=== PATIENT | female | born 1935 | race Caucasian/White ===

== ENCOUNTER → 2016-10-10 | Outpatient (CLI) | payer MEDICARE, OTHER ==
[~2016-10-10] MED LIST: BACT800T5 PO; BENEPOW8 PO; CALC1TAB42 PO; CHOL5000 PO; CIPR-9 PO; HYDR-3288 PO; LISI-519 PO; METO25TA6 PO; METR-1 PO; POTA-243 PO; PROT40TA PO; TYLE325T PO; XARE20TA PO
[2016-10-10 11:32] LABS: AUTOMATED NEUTROPHIL # 6.4 TH/MM3 (1.8-7.7); BASOPHIL # 0.1 TH/MM3 (0-0.2); BASOPHIL % 0.8 % (0.0-2.0); EOSINOPHIL # 0.2 TH/MM3 (0-0.4); EOSINOPHIL % 1.7 % (0.0-4.0); HEMATOCRIT 36.9 % (35.0-46.0); HEMO FLAGS DIFF FINAL; LYMPH % 23.8 % (9.0-44.0); LYMPHOCYTE # 2.2 TH/MM3 (1.0-4.8); MEAN CELL VOLUME 90.8 FL (80.0-100.0); MEAN CORPUSCULAR HEMOGLOBIN 30.7 PG (27.0-34.0); MEAN CORPUSCULAR HGB CONC 33.8 % (32.0-36.0); MONO % 4.4 % (0.0-8.0); NEUT % 69.3 % (16.0-70.0); PLATELET COUNT 303 TH/MM3 (150-450); RED BLOOD COUNT 4.06 MIL/MM3 (4.00-5.30); RED CELL DISTRIBUTION WIDTH 13.6 % (11.6-17.2); WHITE BLOOD COUNT 9.3 TH/MM3 (4.0-11.0)
[2016-10-10 13:36] LABS: ALKALINE PHOSPHATASE 147 U/L (45-117); ALT (GPT) 21 U/L (10-53); ANION GAP 6 MEQ/L (5-15); AST (GOT) 16 U/L (15-37); BICARBONATE 30.6 MEQ/L (21.0-32.0); BLOOD UREA NITROGEN 17 MG/DL (7-18); CHLORIDE 104 MEQ/L (98-107); GLOMERULAR FILTRATION RATE 54 ML/MIN (>89); GLUCOSE,FASTING 91 MG/DL (74-99); POTASSIUM 3.9 MEQ/L (3.5-5.1); SODIUM (NA) 141 MEQ/L (136-145); TOTAL BILIRUBIN ADULT 0.3 MG/DL (0.2-1.0)
[2016-10-10 21:32] LABS: HEMOGLOBIN A1b 1.8 %; HEMOGLOBIN Ao 85.6 %; HEMOGLOBIN LA1C 1.8 %; HEMOGLOBIN P3 3.8 %
== END ==
LOC: CLAB 10:26
DX: I12.9 Hypertensive chronic kidney disease with stage 1 through stage 4 chronic kidney disease, or unspecified chronic kidney disease (principal); N18.3 Chronic kidney disease, stage 3 (moderate); R73.01 Impaired fasting glucose
CPT/HCPCS: 36415; 80053; 83036; 84100; 85025

== ENCOUNTER 2016-12-28 09:25 | Emergency (ER) | payer MEDICARE, OTHER ==
[~2016-12-28 09:25] MED LIST changes: -BACT800T5 PO; -POTA-243 PO
[2016-12-28 09:26] VITALS: BP 126/62; PULSE 84; RESP 24; TEMP 97.7; O2SAT 97
[2016-12-28] MEDS ORDERED: POTA-243 PO (10:11)
--- NOTE | 2016-12-28 10:37 | PD ---
HPI Chief Complaint: Complaint Time Seen by Provider: 09:57 Travel History International Travel<30 days: No Contact w/Intl Traveler<30days: No Traveled to known affect area: No History of Present Illness HPI The patient is a 81-year-old female who presents emergency department with a family member for possible hematuria. The patient has a history of dementia, has been incontinent of urine for approximately 3 years. The patient does have a history of mild kidney disease and previous UTI, was treated with Diflucan 2 weeks ago according to the family member. The family member states the patient had a small amount of dark urine with possible blood this morning on her diaper. There was no visible rectal bleeding according to the family member. The patient does have dementia and is a poor historian. The patient denies any chest pain, short of breath, nausea, vomiting, abdominal pain, or dysuria. The family member states that she called the patient's grades 1 thru [address] teacher, Dr. Naik, who referred her to the emergency department for a catheter UA evaluation. The patient has no previous history of nephrolithiasis. PFSH Past Medical History Hx Anticoagulant Therapy: Yes (XARELTO ) Alzheimer's Disease: Yes Blood Disorders: No Heart Rhythm Problems: No Cancer: No Cardiovascular Problems: Yes (PACEMAKER) High Cholesterol: Yes Chest Pain: No Congestive Heart Failure: No Dementia: Yes Diabetes: No Diminished Hearing: No Deep Vein Thrombosis: Yes (L THIGH ) Endocrine: Yes Gastrointestinal Disorders: No Genitourinary: Yes (FREQUENT UTI) Hypertension: Yes Immune Disorder: No Implanted Vascular Access Dvce: Yes Musculoskeletal: No Neurologic: No Psychiatric: No Reproductive: No Respiratory: No Immunizations Current: Yes Thyroid Disease: Yes (REFUSED TREATMENT ) Tetanus Vaccination: Never Vaccinated Menopausal: Yes Past Surgical History Body Medical Devices: PACEMAKER Cardiac Surgery: Yes (PACEMAKER PLACED) Gynecologic Surgery: Yes Hysterectomy: Yes Pacemaker: No Other Surgery: Yes (L SHOULDER; PACEMAKER) Social History Alcohol Use: No Tobacco Use: No Substance Use: No Allergies-Medications (Allergen,Severity, Reaction): Coded Allergies: No Known Allergies (Unverified , 05/30/16) Reported Meds & Prescriptions Reported Meds & Active Scripts Active Metoprolol Succinate ER 24 HR (Metoprolol Succinate) 25 Mg Tab 25 Mg PO DAILY 30 Days Reported Klor-Con 10 (Potassium Chloride) 10 Meq Tab 10 Meq PO DAILY Xarelto (Rivaroxaban) 20 Mg Tab 20 Mg PO DAILY Lisinopril 5 Mg Tab 5 Mg PO DAILY Review of Systems ROS Limitations: Poor Historian Except as stated in HPI: all other systems reviewed are Neg General / Constitutional: No: Fever Cardiovascular: No: Chest Pain or Discomfort Respiratory: No: Shortness of Breath Gastrointestinal: No: Nausea, Vomiting, Abdominal Pain Genitourinary: Positive: Hematuria (possible hematuria according to family member), No: Dysuria, Decreased Urinary Output Musculoskeletal: No: Weakness Neurologic: Positive: Change in Mentation (history of dementia) Physical Exam Narrative GENERAL: Awake, alert, pleasant 81-year-old female who appears her stated age and is in no acute respiratory distress. SKIN: Focused skin assessment warm/dry. HEAD: Atraumatic. Normocephalic. EYES: No injection or drainage. ENT: No nasal bleeding or discharge. Mucous membranes pink and moist. NECK: Trachea midline. No JVD. CARDIOVASCULAR: Regular rate and rhythm. No murmur appreciated. RESPIRATORY: No accessory muscle use. Clear to auscultation. Breath sounds equal bilaterally. GASTROINTESTINAL: Abdomen soft, non-tender, nondistended. No suprapubic tenderness. Rectal: The exam was performed in the presence of a female nurse. No gross blood. Guaiac negative. MUSCULOSKELETAL: No obvious deformities. No clubbing. No cyanosis. No edema. NEUROLOGICAL: Awake and alert. No obvious cranial nerve deficits. Motor grossly within normal limits. Normal speech. Alert and oriented 1 out of 3. PSYCHIATRIC: Appropriate mood and affect; insight and judgment normal. Data Data Last Documented VS Vital Signs Date Time Temp Pulse Resp B/P Pulse Ox O2 Delivery O2 Flow Rate FiO2 12/28/16 09:26 97.7 84 24 126/62 97 Room Air Orders Complete Blood Count With Diff (12/28/16 10:06) Basic Metabolic Panel (Bmp) (12/28/16 10:06) Urinalysis - C+S If Indicated (12/28/16 10:06) Act Partial Throm Time (Ptt) (12/28/16 10:06) Prothrombin Time / Inr (Pt) (12/28/16 10:06) Urine Culture (12/28/16 10:10) Labs Laboratory Tests Test 12/28/16 12/28/16 10:10 11:28 Urine Color YELLOW Urine Turbidity CLOUDY Urine pH 6.5 Urine Specific Concrete 1.020 Urine Protein TRACE mg/dL Urine Glucose (UA) NEG mg/dL Urine Ketones NEG mg/dL Urine Occult Blood MOD Urine Nitrite NEG Urine Bilirubin NEG Urine Urobilinogen LESS THAN 2.0 MG/DL Urine Leukocyte Esterase LARGE Urine RBC 15 /hpf Urine WBC 45 /hpf Urine WBC Clumps OCC Urine Amorphous Sediment RARE Urine Bacteria RARE /hpf Urine Mucus FEW /lpf Microscopic Urinalysis Comment CATH-CULTURE IND White Blood Count 11.0 TH/MM3 Red Blood Count 4.46 MIL/MM3 Hemoglobin 13.6 GM/DL Hematocrit 40.7 % Mean Corpuscular Volume 91.2 FL Mean Corpuscular Hemoglobin 30.4 PG Mean Corpuscular Hemoglobin 33.4 % Concent Red Cell Distribution Width 14.3 % Platelet Count 236 TH/MM3 Mean Platelet Volume 7.5 FL Neutrophils (%) (Auto) 72.5 % Lymphocytes (%) (Auto) 17.6 % Monocytes (%) (Auto) 7.7 % Eosinophils (%) (Auto) 1.5 % Basophils (%) (Auto) 0.7 % Neutrophils # (Auto) 8.0 TH/MM3 Lymphocytes # (Auto) 1.9 TH/MM3 Monocytes # (Auto) 0.8 TH/MM3 Eosinophils # (Auto) 0.2 TH/MM3 Basophils # (Auto) 0.1 TH/MM3 CBC Comment DIFF FINAL Differential Comment Prothrombin Time 10.2 SEC Prothromb Time International 0.9 RATIO Ratio Activated Partial 23.3 SEC Thromboplast Time Sodium Level 143 MEQ/L Potassium Level 3.5 MEQ/L Chloride Level 107 MEQ/L Carbon Dioxide Level 29.7 MEQ/L Anion Gap 6 MEQ/L Blood Urea Nitrogen 19 MG/DL Creatinine 1.02 MG/DL Estimat Glomerular Filtration 52 ML/MIN Rate Random Glucose 111 MG/DL Calcium Level 10.8 MG/DL [facility] Medical Decision Making Medical Screen Exam Complete: Yes Emergency Medical Condition: Yes Medical Record Reviewed: Yes Interpretation(s) Laboratory Tests Test 12/28/16 12/28/16 10:10 11:28 Urine Color YELLOW Urine Turbidity CLOUDY Urine pH 6.5 Urine Specific Concrete 1.020 Urine Protein TRACE mg/dL Urine Glucose (UA) NEG mg/dL Urine Ketones NEG mg/dL Urine Occult Blood MOD Urine Nitrite NEG Urine Bilirubin NEG Urine Urobilinogen LESS THAN 2.0 MG/DL Urine Leukocyte Esterase LARGE Urine RBC 15 /hpf Urine WBC 45 /hpf Urine WBC Clumps OCC Urine Amorphous Sediment RARE Urine Bacteria RARE /hpf Urine Mucus FEW /lpf Microscopic Urinalysis Comment CATH-CULTURE IND White Blood Count 11.0 TH/MM3 Red Blood Count 4.46 MIL/MM3 Hemoglobin 13.6 GM/DL Hematocrit 40.7 % Mean Corpuscular Volume 91.2 FL Mean Corpuscular Hemoglobin 30.4 PG Mean Corpuscular Hemoglobin 33.4 % Concent Red Cell Distribution Width 14.3 % Platelet Count 236 TH/MM3 Mean Platelet Volume 7.5 FL Neutrophils (%) (Auto) 72.5 % Lymphocytes (%) (Auto) 17.6 % Monocytes (%) (Auto) 7.7 % Eosinophils (%) (Auto) 1.5 % Basophils (%) (Auto) 0.7 % Neutrophils # (Auto) 8.0 TH/MM3 Lymphocytes # (Auto) 1.9 TH/MM3 Monocytes # (Auto) 0.8 TH/MM3 Eosinophils # (Auto) 0.2 TH/MM3 Basophils # (Auto) 0.1 TH/MM3 CBC Comment DIFF FINAL Differential Comment Prothrombin Time 10.2 SEC Prothromb Time International 0.9 RATIO Ratio Activated Partial 23.3 SEC Thromboplast Time Sodium Level 143 MEQ/L Potassium Level 3.5 MEQ/L Chloride Level 107 MEQ/L Carbon Dioxide Level 29.7 MEQ/L Anion Gap 6 MEQ/L Blood Urea Nitrogen 19 MG/DL Creatinine 1.02 MG/DL Estimat Glomerular Filtration 52 ML/MIN Rate Random Glucose 111 MG/DL Calcium Level 10.8 MG/DL Differential Diagnosis Differential diagnosis includes UTI, hemorrhagic cystitis, nephrolithiasis, GI bleed, anemia, chronic renal failure. Narrative Course Labs are drawn and sent. The patient's white count was normal. Creatinine is 1.02 with a GFR of 50. UA is positive for UTI with WBCs and RBCs. The patient will be placed on Bactrim. The patient is stable for outpatient follow-up. The family will be provided a copy of labs at discharge. Diagnosis Primary Impression: UTI (urinary tract infection) Qualified Code: N39.0 - Urinary tract infection with hematuria, site unspecified Patient Instructions: General Instructions Additional Instructions: Medications as directed. Please provide the family a copy of labs at discharge. Follow-up with your primary physician. Return if symptoms worsen or progress. Med/Other Pt SpecificInfo: Prescription(s) given Scripts Sulfamethoxazole-Trimethoprim (Bactrim DS)800-160 Mg Tab1 Tab PO BID #14 TAB Ref 0 Prov:Sebastien Kearns MD 12/28/16 Disposition: 01 DISCHARGE HOME Condition: Stable Sebastien Kaerns MD Dec 28, 2016 10:37
[2016-12-28 11:28] LABS: BACTERIA, URINE RARE /hpf; BLOOD, URINE MOD (NEG); COMMENT (UR) CATH-CULTURE IND; CULTURE IF INDICATED CATH CULTURE IND; GLUCOSE,URINE NEG (NEG); KETONE, URINE NEG (NEG); MUCUS URINE FEW /lpf (OCC); NITRITE,URINE NEG (NEG); PH, URINE 6.5 (5.0-8.5); URINE COLOR YELLOW (YELLW/STRAW)
[2016-12-28 11:43] LABS: BASOPHIL # 0.1 TH/MM3 (0-0.2); BASOPHIL % 0.7 % (0.0-2.0); EOSINOPHIL # 0.2 TH/MM3 (0-0.4); EOSINOPHIL % 1.5 % (0.0-4.0); HEMATOCRIT 40.7 % (35.0-46.0); HEMO FLAGS DIFF FINAL; LYMPH % 17.6 % (9.0-44.0); LYMPHOCYTE # 1.9 TH/MM3 (1.0-4.8); MEAN CELL VOLUME 91.2 FL (80.0-100.0); MEAN CORPUSCULAR HEMOGLOBIN 30.4 PG (27.0-34.0); MEAN CORPUSCULAR HGB CONC 33.4 % (32.0-36.0); MONO % 7.7 % (0.0-8.0); NEUT % 72.5 % (16.0-70.0); PLATELET COUNT 236 TH/MM3 (150-450); RED BLOOD COUNT 4.46 MIL/MM3 (4.00-5.30); RED CELL DISTRIBUTION WIDTH 14.3 % (11.6-17.2)
[2016-12-28 11:52] LABS: APTT (PATIENT) 23.3 SEC (24.3-30.1); INTERNATIONAL NORMALIZED RATIO 0.9 RATIO; PROTHROMBIN TIME - PATIENT 10.2 SEC (9.8-11.6)
[2016-12-28 12:09] LABS: BICARBONATE 29.7 MEQ/L (21.0-32.0); POTASSIUM 3.5 MEQ/L (3.5-5.1)
[2016-12-28] MEDS ORDERED: SULFAMETHOXAZOLE-TRIMETHOPRIM DS 800-160 MG TAB PO ONE (12:15)
[2016-12-28] MEDS ORDERED: BACT800T5 PO (12:15)
== END 2016-12-28 13:00 | disposition home or self-care (01) ==
LOC: NEPC 09:25
DX: N39.0 Urinary tract infection, site not specified (principal); B96.4 Proteus (mirabilis) (morganii) as the cause of diseases classified elsewhere; R31.9 Hematuria, unspecified
CPT/HCPCS: 80048; 81001; 85025; 85610; 85730; 87077; 87086; 87186; 99283

== ENCOUNTER → 2017-04-05 | Outpatient (CLI) | payer MEDICARE, OTHER ==
[~2017-04-05] MED LIST changes: +BACT800T5 PO; -BENEPOW8 PO; -CALC1TAB42 PO; -CHOL5000 PO; -CIPR-9 PO; -HYDR-3288 PO; -METR-1 PO; +POTA-243 PO; -PROT40TA PO; -TYLE325T PO
[2017-04-05 09:15] LABS: BASOPHIL # 0.1 TH/MM3 (0-0.2); EOSINOPHIL # 0.2 TH/MM3 (0-0.4); HEMATOCRIT 37.3 % (35.0-46.0); HEMO FLAGS DIFF FINAL; LYMPH % 25.2 % (9.0-44.0); LYMPHOCYTE # 2.2 TH/MM3 (1.0-4.8); NEUT % 67.8 % (16.0-70.0); PLATELET COUNT 247 TH/MM3 (150-450); RED BLOOD COUNT 3.97 MIL/MM3 (4.00-5.30); RED CELL DISTRIBUTION WIDTH 13.5 % (11.6-17.2); WHITE BLOOD COUNT 8.9 TH/MM3 (4.0-11.0)
[2017-04-05 09:23] LABS: APTT (PATIENT) 27.7 SEC (24.3-30.1); PROTHROMBIN TIME - PATIENT 11.1 SEC (9.8-11.6)
[2017-04-05 09:44] LABS: ANION GAP 7 MEQ/L (5-15); AST (GOT) 15 U/L (15-37); BICARBONATE 28.8 MEQ/L (21.0-32.0); BLOOD UREA NITROGEN 18 MG/DL (7-18); CHLORIDE 103 MEQ/L (98-107); GLOMERULAR FILTRATION RATE 60 ML/MIN (>89); GLUCOSE,FASTING 86 MG/DL (74-99); POTASSIUM 3.4 MEQ/L (3.5-5.1); SODIUM (NA) 139 MEQ/L (136-145)
[2017-04-05 10:39] LABS: ALKALINE PHOSPHATASE 99 U/L (45-117); HDL CHOLESTEROL 44.3 MG/DL (40.0-60.0); LDL CHOLESTEROL 189 MG/DL (0-99); TOTAL BILIRUBIN ADULT 0.5 MG/DL (0.2-1.0)
[2017-04-05 10:59] LABS: ALT (GPT) 17 U/L (10-53)
== END ==
LOC: CLAB 08:31
PROVIDERS: ATTEND Nurse Practitioner Family
DX: E78.5 Hyperlipidemia, unspecified (principal); I12.9 Hypertensive chronic kidney disease with stage 1 through stage 4 chronic kidney disease, or unspecified chronic kidney disease; N18.3 Chronic kidney disease, stage 3 (moderate); I82.402 Acute embolism and thrombosis of unspecified deep veins of left lower extremity; Z13.21 Encounter for screening for nutritional disorder; Z79.01 Long term (current) use of anticoagulants
CPT/HCPCS: 36415; 80053; 80061; 82306; 85025; 85610; 85730

== ENCOUNTER → 2017-04-08 | Outpatient (CLI) | payer MEDICARE, OTHER ==
--- NOTE | 2017-04-08 11:26 | RADRPT ---
EXAM DATE/TIME: 04/08/2017 10:19 [facility] COMPARISON: No previous studies available for comparison. INDICATIONS : Deep vein thrombosis left leg. MEDICAL HISTORY : Alzheimer's. hypertension. SURGICAL HISTORY : Pacemaker.Hysterectomy. Shoulder surgery. ENCOUNTER: Initial ACUITY: >1 year PAIN SCORE: 0/10 LOCATION: Bilateral leg. TECHNIQUE: Venous ultrasound of the left and right leg was performed from the inguinal ligament to the proximal calf. Real-time, color Doppler and spectral tracing, compression and augmentation techniques were us ed. FINDINGS: RIGHT LEG: There is normal compressibility of the deep venous system from the inguinal region to the proximal ca lf. No echogenic clot is seen in the lumen of the common femoral, femoral, popliteal, and posterior tibial veins. There is a normal response of the venous system to proximal and distal augmentation an d respiration. LEFT LEG: There is normal compressibility of the deep venous system from the inguinal region to the proximal ca lf. No echogenic clot is seen in the lumen of the common femoral, femoral, popliteal, and posterior tibial veins. There is a normal response of the venous system to proximal and distal augmentation an d respiration. CONCLUSION: No evidence of DVT. Mars Wheatley MD on April 08, 2017 at 11:23 Board Certified Radiologist. This report was verified electronically.
== END ==
LOC: HRAD 10:03
PROVIDERS: ATTEND Internal Medicine Cardiovascular Disease
DX: I82.409 Acute embolism and thrombosis of unspecified deep veins of unspecified lower extremity (principal)
CPT/HCPCS: 93970

== ENCOUNTER → 2017-10-14 | Outpatient (CLI) | payer MEDICARE, OTHER ==
[~2017-10-14] MED LIST changes: +CEFU1TAB20 PO; +HYDR-3516 PO; +KLOR10TA PO; +METO1TAB42 PO; -METO25TA6 PO; -POTA-243 PO; +WHEEMIS3
[2017-10-14 11:30] LABS: BASOPHIL # 0.1 TH/MM3 (0-0.2); BASOPHIL % 1.3 % (0.0-2.0); EOSINOPHIL # 0.2 TH/MM3 (0-0.4); HEMATOCRIT 37.8 % (35.0-46.0); HEMOGLOBIN 13.1 GM/DL (11.6-15.3); LYMPH % 28.7 % (9.0-44.0); LYMPHOCYTE # 2.7 TH/MM3 (1.0-4.8); MEAN CELL VOLUME 94.1 FL (80.0-100.0); MEAN CORPUSCULAR HEMOGLOBIN 32.7 PG (27.0-34.0); MEAN CORPUSCULAR HGB CONC 34.8 % (32.0-36.0); MEAN PLATELET VOLUME 7.4 FL (7.0-11.0); MONO % 4.4 % (0.0-8.0); MONOCYTE # 0.4 TH/MM3 (0-0.9); NEUT % 63.6 % (16.0-70.0); PLATELET COUNT 241 TH/MM3 (150-450); RED BLOOD COUNT 4.01 MIL/MM3 (4.00-5.30); RED CELL DISTRIBUTION WIDTH 13.4 % (11.6-17.2); WHITE BLOOD COUNT 9.4 TH/MM3 (4.0-11.0)
[2017-10-14 11:53] LABS: ALT (GPT) 18 U/L (10-53); CHOLESTEROL 274 MG/DL (120-200); TRIGLYCERIDES 175 MG/DL (42-150)
[2017-10-14 11:56] LABS: ALKALINE PHOSPHATASE 97 U/L (45-117); CHOLESTEROL/ HDL RATIO 5.91 RATIO; HDL CHOLESTEROL 46.3 MG/DL (40.0-60.0); LDL CHOLESTEROL 193 MG/DL (0-99); TOTAL BILIRUBIN ADULT 0.6 MG/DL (0.2-1.0)
[2017-10-14 11:57] LABS: ALBUMIN 2.7 GM/DL (3.4-5.0); AST (GOT) 36 U/L (15-37); BICARBONATE 29.8 MEQ/L (21.0-32.0); BLOOD UREA NITROGEN 17 MG/DL (7-18); CALCIUM 10.4 MG/DL (8.5-10.1); CHLORIDE 106 MEQ/L (98-107); CREATININE 0.98 MG/DL (0.50-1.00); GLOMERULAR FILTRATION RATE 55 ML/MIN (>89); GLUCOSE,FASTING 83 MG/DL (74-99); SODIUM (NA) 142 MEQ/L (136-145)
== END ==
LOC: CLAB 10:58
PROVIDERS: ATTEND Nurse Practitioner Family
DX: I10 Essential (primary) hypertension (principal); N18.3 Chronic kidney disease, stage 3 (moderate); E78.5 Hyperlipidemia, unspecified; E55.9 Vitamin D deficiency, unspecified; Z00.00 Encounter for general adult medical examination without abnormal findings
CPT/HCPCS: 36415; 80053; 80061; 82306; 85025

== ENCOUNTER 2017-10-17 11:53 | Inpatient (IN) | payer MEDICARE, OTHER ==
[~2017-10-17] VITALS: Ht 147.3 cm; Wt 75.0 kg
[~2017-10-17 11:53] MED LIST changes: -CEFU1TAB20 PO; -HYDR-3516 PO; -WHEEMIS3
[2017-10-17 12:00] VITALS: BP 162/109; PULSE 66; RESP 18; TEMP 97.8; O2SAT 100
[2017-10-17 12:09] VITALS: O2SAT 100
[2017-10-17] MEDS ORDERED: SODIUM CHLORIDE 0.9% FLUSH 10 ML FLUSH IVF PRN (12:15)
[2017-10-17 13:29] LABS: HEMATOCRIT 37.6 % (35.0-46.0); HEMOGLOBIN 13.2 GM/DL (11.6-15.3); MEAN CELL VOLUME 93.4 FL (80.0-100.0); MEAN CORPUSCULAR HEMOGLOBIN 32.8 PG (27.0-34.0); MEAN CORPUSCULAR HGB CONC 35.1 % (32.0-36.0); PLATELET COUNT 350 TH/MM3 (150-450); RED BLOOD COUNT 4.03 MIL/MM3 (4.00-5.30); RED CELL DISTRIBUTION WIDTH 13.9 % (11.6-17.2); WHITE BLOOD COUNT 17.5 TH/MM3 (4.0-11.0)
[2017-10-17 13:38] LABS: BACTERIA, URINE MANY /hpf; BILIRUBIN, URINE NEG (NEG); BLOOD, URINE SMALL (NEG); GLUCOSE,URINE NEG (NEG); KETONE, URINE NEG (NEG); MUCUS URINE MANY /lpf (OCC); NITRITE,URINE POS (NEG); SQUAMOUS EPITHELIAL CELL URINE 2 /hpf (0-5); URINE COLOR YELLOW (YELLW/STRAW); URINE LEUKOCYTE ESTERASE LARGE (NEG); WHITE BLOOD CELL CLUMPS MANY
--- NOTE | 2017-10-17 13:41 | PD ---
HPI Chief Complaint: Fall Time Seen by Provider: 11:58 Travel History International Travel<30 days: No Contact w/Intl Traveler<30days: No Traveled to known affect area: No History of Present Illness HPI 82-year-old female arrives by EMS due to fall. Daughter reports the patient was placed in bed in the rales at home were put up. She has a history of dementia. She was then found on the floor and the means by which she got to the floor is unclear. An abrasion over the nose was observed by EMS and daughter in a thinks she may have scraped her nose on a bedside table. History from the patient is limited due to dementia. PFSH Past Medical History Hx Anticoagulant Therapy: Yes (XARELTO ) Alzheimer's Disease: Yes Blood Disorders: No Heart Rhythm Problems: No Cancer: No Cardiovascular Problems: Yes (PACEMAKER) High Cholesterol: Yes Chest Pain: No Congestive Heart Failure: No Dementia: Yes Diabetes: No Diminished Hearing: No Deep Vein Thrombosis: Yes (L THIGH ) Endocrine: Yes Gastrointestinal Disorders: No Genitourinary: Yes (FREQUENT UTI) Hypertension: Yes Immune Disorder: No Implanted Vascular Access Dvce: Yes Musculoskeletal: No Neurologic: No Psychiatric: No Reproductive: No Respiratory: No Immunizations Current: Yes Thyroid Disease: Yes (REFUSED TREATMENT ) ?: Not Menopausal: Yes Past Surgical History Body Medical Devices: PACEMAKER Cardiac Surgery: Yes (PACEMAKER PLACED) Gynecologic Surgery: Yes Hysterectomy: Yes Pacemaker: No Other Surgery: Yes (L SHOULDER; PACEMAKER) Social History Alcohol Use: No Tobacco Use: No Substance Use: No Allergies-Medications (Allergen,Severity, Reaction): Coded Allergies: No Known Allergies (Verified Allergy, Unknown, 10/17/17) Reported Meds & Prescriptions Reported Meds & Active Scripts Active Metoprolol Succinate ER 24 HR (Metoprolol Succinate) 25 Mg Tab 25 Mg PO DAILY 30 Days Reported Xarelto (Rivaroxaban) 20 Mg Tab 20 Mg PO DAILY Lisinopril 5 Mg Tab 5 Mg PO DAILY Review of Systems Except as stated in HPI: all other systems reviewed are Neg General / Constitutional: No: Fever Physical Exam Narrative GENERAL: 82-year-old female mild to moderate distress secondary to pain and/or anxiety SKIN: Warm and dry. HEAD: Atraumatic. Normocephalic. EYES: Pupils equal and round. No scleral icterus. No injection or drainage. ENT: No nasal bleeding or discharge. Mucous membranes pink and moist. NECK: Trachea midline. No JVD. CARDIOVASCULAR: Regular rate and rhythm. RESPIRATORY: No accessory muscle use. Clear to auscultation. Breath sounds equal bilaterally. GASTROINTESTINAL: Abdomen soft, non-tender, nondistended. Hepatic and splenic margins not palpable. MUSCULOSKELETAL: Extremities without clubbing, cyanosis, or edema. No obvious deformities. NEUROLOGICAL: No focal cranial nerve deficit. Moving all extremities normally. Recent memory is impaired. PSYCHIATRIC: Unable to assess in detail. Data Data Last Documented VS Vital Signs Date Time Temp Pulse Resp B/P (MAP) Pulse Ox O2 Delivery O2 Flow Rate FiO2 10/17/17 12:09 100 Room Air 10/17/17 12:00 97.8 66 18 162/109 (126) Vital signs reviewed Orders Orders Electrocardiogram (10/17/17 12:05) Complete Blood Count With Diff (10/17/17 12:05) Comprehensive Metabolic Panel (10/17/17 12:05) Magnesium (Mg) (10/17/17 12:05) Act Partial Throm Time (Ptt) (10/17/17 12:05) Prothrombin Time / Inr (Pt) (10/17/17 12:05) Urinalysis - C+S If Indicated (10/17/17 12:05) Chest, Single Ap (10/17/17 12:05) Ct Brain W/O Iv Contrast(Rout) (10/17/17 12:05) Blood Glucose (10/17/17 12:05) Ecg Monitoring (10/17/17 12:05) Iv Access Insert/Monitor (10/17/17 12:05) Oximetry (10/17/17 12:05) Sodium Chloride 0.9% Flush (Ns Flush) (10/17/17 12:15) Hip, Uni(Ap&Lat) W Ap Pelvis (10/17/17 12:05) Knee, Complete (4vws) (10/17/17 12:05) Troponin I (10/17/17 12:36) Urine Culture (10/17/17 12:10) Ceftriaxone Inj (Rocephin Inj) (10/17/17 14:00) ^ Knee Immobilizer (10/17/17 14:25) Admit Order (Ed Use Only) (10/17/17 ) Vital Signs (Adult) Q4H (10/17/17 14:56) Activity Bed Rest (10/17/17 14:56) Notify Dr: Other (10/17/17 14:56) Lisinopril (Prinivil) (10/18/17 09:00) Metoprolol Succinate Er (Toprol Xl) (10/18/17 09:00) Labs Laboratory Tests Test 10/17/17 12:10 10/17/17 12:45 Urine Color YELLOW Urine Turbidity CLOUDY Urine pH 6.0 Urine Specific Rembrandt 1.021 Urine Protein 30 mg/dL Urine Glucose (UA) NEG mg/dL Urine Ketones NEG mg/dL Urine Occult Blood SMALL Urine Nitrite POS Urine Bilirubin NEG Urine Urobilinogen LESS THAN 2.0 MG/DL Urine Leukocyte Esterase LARGE Urine RBC 21 /hpf Urine WBC /hpf Urine WBC Clumps MANY Urine Squamous Epithelial Cells 2 /hpf Urine Bacteria MANY /hpf Urine Mucus MANY /lpf Microscopic Urinalysis Comment CULTURE INDICATED White Blood Count 17.5 TH/MM3 Red Blood Count 4.03 MIL/MM3 Hemoglobin 13.2 GM/DL Hematocrit 37.6 % Mean Corpuscular Volume 93.4 FL Mean Corpuscular Hemoglobin 32.8 PG Mean Corpuscular Hemoglobin Concent 35.1 % Red Cell Distribution Width 13.9 % Platelet Count 350 TH/MM3 Mean Platelet Volume 9.0 FL CBC Comment AUTO DIFF Differential Total Cells Counted 100 Neutrophils % (Manual) 84 % Band Neutrophils % 2 % Lymphocytes % 11 % Monocytes % 2 % Neutrophils # (Manual) 15.2 TH/MM3 Myelocytes 1 % Differential Comment FINAL DIFF MANUAL Platelet Estimate NORMAL Platelet Morphology Comment NORMAL Red Cell Morphology Comment NORMAL Prothrombin Time 10.1 SEC Prothromb Time International Ratio 1.0 RATIO Activated Partial Thromboplast Time 21.3 SEC Blood Urea Nitrogen 16 MG/DL Creatinine 0.94 MG/DL Random Glucose 127 MG/DL Total Protein 7.0 GM/DL Albumin 2.9 GM/DL Calcium Level 9.8 MG/DL Magnesium Level 1.9 MG/DL Alkaline Phosphatase 102 U/L Aspartate Amino Transf (AST/SGOT) 22 U/L Alanine Aminotransferase (ALT/SGPT) 19 U/L Total Bilirubin 0.4 MG/DL Sodium Level 140 MEQ/L Potassium Level 3.1 MEQ/L Chloride Level 107 MEQ/L Carbon Dioxide Level 23.4 MEQ/L Anion Gap 10 MEQ/L Estimat Glomerular Filtration Rate 57 ML/MIN Troponin I LESS THAN 0.02 NG/ML MDM Medical Decision Making Medical Screen Exam Complete: Yes Emergency Medical Condition: Yes Medical Record Reviewed: Yes Differential Diagnosis Metabolic disarray, renal failure, UTI, intracranial hemorrhage Narrative Course CBC & BMP Diagram 10/17/17 12:45 Total Protein 7.0, Albumin 2.9 L, Calcium Level 9.8, Magnesium Level 1.9, Alkaline Phosphatase 102, Aspartate Amino Transf (AST/SGOT) 22, Alanine Aminotransferase (ALT/SGPT) 19, Total Bilirubin 0.4 The patient is nonambulatory. She requires wheelchair assistance for mobilization. The case discussed with orthopedics who advised to consult Dr. Shaffer. This was placed. There is a distal femur fracture seen on x-ray. Right hip hardware is intact with acceptable alignment. Case discussed with Dr Gillespie. Diagnosis Primary Impression: Dementia Qualified Codes: F03.91 - Unspecified dementia with behavioral disturbance Additional Impressions: UTI (urinary tract infection) Qualified Codes: N30.01 - Acute cystitis with hematuria Closed right hip fracture Qualified Codes: S72.001S - Fracture of unspecified part of neck of right femur, sequela Fracture, femur, distal Qualified Codes: S72.401A - Unspecified fracture of lower end of right femur, initial encounter for closed fracture Admitting Information Admitting Physician Requests: Keith Tam MD Oct 17, 2017 13:41
[2017-10-17 13:44] LABS: PROTHROMBIN TIME - PATIENT 10.1 SEC (9.8-11.6)
[2017-10-17 13:46] LABS: ALBUMIN 2.9 GM/DL (3.4-5.0); ALT (GPT) 19 U/L (10-53); AST (GOT) 22 U/L (15-37); BICARBONATE 23.4 MEQ/L (21.0-32.0); BLOOD UREA NITROGEN 16 MG/DL (7-18); CALCIUM 9.8 MG/DL (8.5-10.1); CHLORIDE 107 MEQ/L (98-107); CREATININE 0.94 MG/DL (0.50-1.00); GLOMERULAR FILTRATION RATE 57 ML/MIN (>89); GLUCOSE,RANDOM 127 MG/DL (74-106); MAGNESIUM 1.9 MG/DL (1.5-2.5); SODIUM (NA) 140 MEQ/L (136-145)
[2017-10-17 13:48] LABS: ALKALINE PHOSPHATASE 102 U/L (45-117); TOTAL BILIRUBIN ADULT 0.4 MG/DL (0.2-1.0)
--- NOTE | 2017-10-17 13:49 | RADRPT ---
EXAM DATE/TIME: 10/17/2017 12:56 [facility] COMPARISON: No previous studies available for comparison. INDICATIONS : Fall, facial abrasions. RADIATION DOSE: 56.35 CTDIvol (mGy) MEDICAL HISTORY : Alzheimer's Cardiovascular disease Hypertension. SURGICAL HISTORY : None. ENCOUNTER: Initial ACUITY: 1 day PAIN SCALE: 0/10 LOCATION: cranial TECHNIQUE: Multiple contiguous axial images were obtained of the head. Using automated exposure control and adj ustment of the mA and/or kV according to patient size, radiation dose was kept as low as reasonably a chievable to obtain optimal diagnostic quality images. DICOM format image data is available electro nically for review and comparison. FINDINGS: CEREBRUM: Moderate to severe generalized volume loss is noted. There is significant enlargement of the lateral ventricles. Extensive periventricular hypodensity is identified throughout posterior hemispheres. No evidence of midline shift, mass lesion, hemorrhage or acute infarction. No extra-axial fluid collect ions are seen. POSTERIOR FOSSA: The cerebellum and brainstem are intact. The 4th ventricle is midline. The cerebellopontine angle i s unremarkable. EXTRACRANIAL: The visualized portion of the orbits is intact. SKULL: The calvaria is intact. No evidence of skull fracture. CONCLUSION: 1. Advanced central atrophy with ventriculomegaly and severe chronic microvascular ischemic white mat ter changes. 2. No acute infarct, hemorrhage, mass or edema. Mars Wheatley MD on October 17, 2017 at 13:45 Board Certified Radiologist. This report was verified electronically.
[2017-10-17] MEDS ORDERED: cefTRIAXone INJ 1,000 MG in SODIUM CHLORIDE 0.9% INJ 100 ML IV ONE (14:00)
--- NOTE | 2017-10-17 14:05 | RADRPT ---
EXAM DATE/TIME: 10/17/2017 13:18 [facility] COMPARISON: No previous studies available for comparison. INDICATIONS : Right knee pain, fall. MEDICAL HISTORY : None. SURGICAL HISTORY : None. ENCOUNTER: Initial ACUITY: 1 day PAIN SCORE: 9/10 LOCATION: Right knee FINDINGS: There is a slightly compacted fracture of the distal femur. Osseous structures are diffusely osteopen ic. Remaining osseous structures are intact. Small probable lipohemarthrosis of the suprapatellar reg ion. Soft tissues are otherwise unremarkable. CONCLUSION: 1. Distal femoral fracture. Kennedy Juan MD on October 17, 2017 at 14:01 Board Certified Radiologist. This report was verified electronically.
--- NOTE | 2017-10-17 14:22 | RADRPT ---
EXAM DATE/TIME: 10/17/2017 13:14 [facility] COMPARISON: HIP RIGHT (AP&LAT 2/3VWS) W AP PELVIS, August 16, 2016, 9:05. INDICATIONS : Right hip pain, fall. MEDICAL HISTORY : None. SURGICAL HISTORY : Pacemaker. Hysterectomy. Right total hip replacement, Shoulder replacement. ENCOUNTER: Initial ACUITY: 1 day PAIN SCORE: 10/10 LOCATION: Right proximal hip FINDINGS: Post surgical changes are identified in the right hip following ORIF with a trochanteric nail. Positi on of the fixation device as well as alignment of the fracture fragments has remained stable. The bon y pelvis is intact. There is no evidence of acute fracture. CONCLUSION: 1. Stable right hip status post prior ORIF of a femoral neck fracture with a trochanteric nail. 2. Intact pelvis and left hip. 3. No evidence of acute fracture or dislocation. Mars Wheatley MD on October 17, 2017 at 14:18 Board Certified Radiologist. This report was verified electronically.
--- NOTE | 2017-10-17 14:29 | RADRPT ---
EXAM DATE/TIME: 10/17/2017 13:28 [facility] COMPARISON: CHEST SINGLE AP, August 15, 2016, 16:48. INDICATIONS : Shortness of breath. MEDICAL HISTORY : None. SURGICAL HISTORY : Pacemaker. Hysterectomy. Left shoulder replacement. ENCOUNTER: Initial ACUITY: 1 day PAIN SCORE: 0/10 LOCATION: Bilateral chest FINDINGS: Hyperinflated. There is no evidence of acute air space disease or significant congestion. Heart and mediastinal structures are stable. Dual-chamber pacemaker is noted. CONCLUSION: 1. COPD. 2. No evidence of acute airspace disease or significant congestion. 3. Pacemaker. Mars Wheatley MD on October 17, 2017 at 14:27 Board Certified Radiologist. This report was verified electronically.
[2017-10-17 14:33] LABS: BANDS 2 % (0-6); LYMPHOCYTES 11 % (9-44); MONOCYTES 2 % (0-8); MYELOCYTES 1 % (0-0); NEUTROPHIL # MANUAL DIFF 15.2 TH/MM3 (1.8-7.7); POLYS (SEG NEUTROPHILS) 84 % (16-70)
[2017-10-17] MEDS ORDERED: ACETAMINOPHEN 325 MG TAB PO PRN (15:00)
[2017-10-17] MEDS ORDERED: SODIUM CHLORIDE 0.9% FLUSH 10 ML FLUSH IV FLUSH PRN (15:00)
[2017-10-17] MEDS ORDERED: ONDANSETRON HCL 4 MG/2 ML VIAL IVP PRN (15:00)
[2017-10-17] MEDS ORDERED: MAGNESIUM HYDROXIDE SUSP 30 ML CUP PO PRN (15:00)
[2017-10-17] MEDS ORDERED: BISACODYL 10 MG SUPP RECTAL PRN (15:00)
[2017-10-17] MEDS ORDERED: NALOXONE HCL 0.4 MG/ML AMP IV PUSH PRN ×2 (15:00→15:45)
[2017-10-17] MEDS ORDERED: SENNOSIDES 8.6 MG TAB PO PRN (15:00)
[2017-10-17] MEDS ORDERED: LACTULOSE SYRUP 20 GM/30 ML CUP PO PRN (15:00)
[2017-10-17] MEDS ORDERED: MORPHINE SULFATE 4 MG/ML INJ IV PUSH ONE (15:30)
[2017-10-17] MEDS ORDERED: MORPHINE SULFATE 2 MG/ML INJ IV PUSH PRN (15:45)
[2017-10-17 16:00] VITALS: BP 154/74; PULSE 72; RESP 18; O2SAT 100
--- NOTE | 2017-10-17 18:17 | HHI.HP ---
[facility] Service [facility] Primary Care Physician ALEJANDRA Oviedo Admission Diagnosis Distal Femur Fracture; Fall; UTI Diagnoses: Chief Complaint: Fall, right femur fracture Travel History International Travel<30 Days: No Contact w/Intl Traveler <30 Da: No Traveled to Known Affected Are: No History of Present Illness 82-year-old female with a medical history significant for Alzheimer's dementia, hypertension, history of DVT presents to the hospital after a fall. Patient has severe dementia and is unable to contribute to the history. Her daughter reports that she is bed and wheelchair bound. Her daughter reports that she left on the bed and the rails were up, about 5 minutes later she went back in the room and found on the floor. She sustained an abrasion over her nose and appeared to be in discomfort. Workup in the emergency room revealed a right distal femoral fracture. Urinalysis concerning for UTI. Review of Systems ROS Limitations: Clinical Condition, Poor Historian Unable to obtain accurate review of systems given the patient's severe dementia. There has been no recent issues from conversation with her daughter. Past Family Social History Past Medical History Alzheimer's dementia History of left lower extremity DVT Hypertension Past Surgical History Hysterectomy Right hip surgery Left shoulder surgery Pacemaker placement Reported Medications Reported Meds & Active Scripts Active Metoprolol Succinate ER 24 HR (Metoprolol Succinate) 25 Mg Tab 25 Mg PO DAILY 30 Days Reported Xarelto (Rivaroxaban) 20 Mg Tab 20 Mg PO DAILY Lisinopril 5 Mg Tab 5 Mg PO DAILY Allergies: Coded Allergies: No Known Allergies (Verified Allergy, Unknown, 10/17/17) Family History Reviewed and noncontributory. Social History Patient believes that home with her daughter. She is sedentary and confined to either the bed or wheelchair. Physical Exam Vital Signs Vital Signs Date Time Temp Pulse Resp B/P (MAP) Pulse Ox O2 Delivery O2 Flow Rate FiO2 10/17/17 17:44 10/17/17 16:00 72 18 154/74 (100) 100 Room Air 10/17/17 12:09 100 Room Air 10/17/17 12:00 97.8 66 18 162/109 (126) 100 Physical Exam GENERAL: Obese female, appears uncomfortable. Can say some words but sentences not put together. SKIN: Abrasions over the nose HEAD: Atraumatic. Normocephalic. No apparent temporal or scalp tenderness. EYES: Pupils equal round and reactive. Extraocular motions intact. No scleral icterus. No injection or drainage. ENT: Nose without drainage. Uvula midline. Airway patent. NECK: Trachea midline. No JVD or lymphadenopathy. CARDIOVASCULAR: Regular rate and rhythm without murmurs, gallops, or rubs. RESPIRATORY: Clear to auscultation. Breath sounds equal bilaterally. No wheezes , rales, or rhonchi. GASTROINTESTINAL: Abdomen soft, obese, non-tender, nondistended. MUSCULOSKELETAL: Difficult exam due to the patient's mentation. She appears uncomfortable but I am not able to elicit specific point tenderness. NEUROLOGICAL: Awake and alert. Demented. Can say some words to her daughter but cannot hold a conversation. Laboratory Laboratory Tests Test 10/17/17 12:10 10/17/17 12:45 Urine Color YELLOW Urine Turbidity CLOUDY Urine pH 6.0 Urine Specific [place] 1.021 Urine Protein 30 Urine Glucose (UA) NEG Urine Ketones NEG Urine Occult Blood SMALL Urine Nitrite POS Urine Bilirubin NEG Urine Urobilinogen LESS THAN 2.0 Urine Leukocyte Esterase LARGE Urine RBC 21 Urine WBC Urine WBC Clumps MANY Urine Squamous Epithelial Cells 2 Urine Bacteria MANY Urine Mucus MANY Microscopic Urinalysis Comment CULTURE INDICATED White Blood Count 17.5 Red Blood Count 4.03 Hemoglobin 13.2 Hematocrit 37.6 Mean Corpuscular Volume 93.4 Mean Corpuscular Hemoglobin 32.8 Mean Corpuscular Hemoglobin Concent 35.1 Red Cell Distribution Width 13.9 Platelet Count 350 Mean Platelet Volume 9.0 CBC Comment AUTO DIFF Differential Total Cells Counted 100 Neutrophils % (Manual) 84 Band Neutrophils % 2 Lymphocytes % 11 Monocytes % 2 Neutrophils # (Manual) 15.2 Myelocytes 1 Differential Comment FINAL DIFF MANUAL Platelet Estimate NORMAL Platelet Morphology Comment NORMAL Red Cell Morphology Comment NORMAL Prothrombin Time 10.1 Prothromb Time International Ratio 1.0 Activated Partial Thromboplast Time 21.3 Blood Urea Nitrogen 16 Creatinine 0.94 Random Glucose 127 Total Protein 7.0 Albumin 2.9 Calcium Level 9.8 Magnesium Level 1.9 Alkaline Phosphatase 102 Aspartate Amino Transf (AST/SGOT) 22 Alanine Aminotransferase (ALT/SGPT) 19 Total Bilirubin 0.4 Sodium Level 140 Potassium Level 3.1 Chloride Level 107 Carbon Dioxide Level 23.4 Anion Gap 10 Estimat Glomerular Filtration Rate 57 Troponin I LESS THAN 0.02 Date/Time Source Procedure Growth Status 10/17/17 12:10 Urine Random Urine Urine Culture Pending Received Result Diagram: 10/17/17 1245 10/17/17 1245 Imaging Last Impressions Knee X-Ray 10/17/17 1205 Signed Impressions: Service Date/Time: October 13:18 - CONCLUSION: 1. Distal femoral fracture. Kennedy Juan MD Head CT 10/17/17 1205 Signed Impressions: Service Date/Time: October 12:56 - CONCLUSION: 1. Advanced central atrophy with ventriculomegaly and severe chronic microvascular ischemic white matter changes. 2. No acute infarct, hemorrhage, mass or edema. Mars Wheatley MD Chest X-Ray 10/17/17 1205 Signed Impressions: Service Date/Time: October 13:28 - CONCLUSION: 1. COPD. 2. No evidence of acute airspace disease or significant congestion. 3. Pacemaker. Mars Wheatley MD Capari VTE Risk Assessment Caprini VTE Risk Assessment: Mod/High Risk (score >= 2) VTE Pharm Contraindication: Documented VTE [facility] Contraindication: LE injury/wound Caprini Risk Assessment Model Point Value = 1 Point Value = 2 Point Value = 3 Point Value = 5 Age 41-60 Minor surgery BMI > 25 kg/m2 Swollen legs Varicose veins or History of unexplained or recurrent spontaneous Oral contraceptives or hormone replacement Sepsis (< 1 month) Serious lung disease, including pneumonia (< 1 month) Abnormal pulmonary function Acute myocardial infarction Congestive heart failure (< 1 month) History of inflammatory bowel disease Medical patient at bed rest Age 61-74 Arthroscopic surgery Major open surgery (> 45 min) Laparoscopic surgery (> 45 min) Malignancy Confined to bed (> 72 hours) Immobilizing plaster cast Central venous access Age >= 75 History of VTE Family history of VTE Factor V Leiden Prothrombin [id number] Lupus anticoagulant Anticardiolipin antibodies Elevated serum homocysteine Heparin-induced thrombocytopenia Other congenital or acquired thrombophilia Stroke (< 1 month) Elective arthroplasty Hip, pelvis, or leg fracture Acute spinal cord injury (< 1 month) Prophylaxis Regimen Total Risk Factor Score Risk Level Prophylaxis Regimen 0-1 Low Early ambulation 2 Moderate Order ONE of the following: *Sequential Compression Device (SCD) *Heparin 5000 units SQ BID 3-4 Higher Order ONE of the following medications: *Heparin 5000 units SQ TID *Enoxaparin/Lovenox 40 mg SQ daily (WT < 150 kg, CrCl > 30 mL/min) *Enoxaparin/Lovenox 30 mg SQ daily (WT < 150 kg, CrCl > 10-29 mL/min) *Enoxaparin/Lovenox 30 mg SQ BID (WT < 150 kg, CrCl > 30 mL/min) AND/OR *Sequential Compression Device (SCD) 5 or more Highest Order ONE of the following medications: *Heparin 5000 units SQ TID (Preferred with Epidurals) *Enoxaparin/Lovenox 40 mg SQ daily (WT < 150 kg, CrCl > 30 mL/min) *Enoxaparin/Lovenox 30 mg SQ daily (WT < 150 kg, CrCl > 10-29 mL/min) *Enoxaparin/Lovenox 30 mg SQ BID (WT < 150 kg, CrCl > 30 mL/min) AND *Sequential Compression Device (SCD) Assessment and Plan Problem List: (1) Fracture, femur, distal ICD Code: S72.409A - Unspecified fracture of lower end of unspecified femur, initial encounter for closed fracture Status: Acute Plan: Orthopedic consulted for assistance. Hold Xalrelto until patient is seen by Ortho. Pain control. (2) Dementia ICD Code: F03.90 - Unspecified dementia without behavioral disturbance Status: Chronic Plan: Stable but I am concerned that she may become more agitated later tonight. Add Seroquel as needed for agitation. She does have a history of behavioral disturbances. (3) UTI (urinary tract infection) ICD Code: N39.0 - Urinary tract infection, site not specified Status: Acute Plan: Continue Rocephin Follow urine culture (4) Hypertension ICD Code: I10 - Essential (primary) hypertension Status: Chronic Plan: Controlled. 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 Hold Xarelto for now until patient is evaluated by orthopedics. Plan to resume if no procedures planned or after surgery when cleared by Ortho. (6) Fall ICD Code: W19.XXXA - Unspecified fall, initial encounter Plan: Unclear how she fell. Head CT with no acute findings. Patient is bedbound/wheelchair bound at baseline. Discussed Condition With Dr. Kearns Physician Certification 2 Midnight Certification Type: Admission for Inpatient Services Order for Inpatient Services The services are ordered in accordance with Medicare regulations or non- Medicare payer requirements, as applicable. In the case of services not specified as inpatient-only, they are appropriately provided as inpatient services in accordance with the 2-midnight benchmark. Estimated LOS (days): 3 days is the estimated time the patient will need to remain in the hospital, assuming treatment plan goals are met and no additional complications. Post-Hospital Plan: Not yet determined Problem Qualifiers (1) Fracture, femur, distal: Qualified Codes: S72.401A - Unspecified fracture of lower end of right femur, initial encounter for closed fracture (2) Dementia: (3) UTI (urinary tract infection): Qualified Codes: N30.01 - Acute cystitis with hematuria Bright Gillespie MD Oct 17, 2017 18:17
[2017-10-17] MEDS: ACETAMINOPHEN/HYDROcodone 325 MG/5 MG TAB PO PRN (18:27)
[2017-10-17] MEDS: D5-1/2 NS + KCL 20 MEQ INJ 1,000 ML IV SCH (18:28)
[2017-10-17 20:00] VITALS: BP 193/79; PULSE 65; RESP 18; TEMP 98.5; O2SAT 98
[2017-10-17] MEDS: SODIUM CHLORIDE 0.9% FLUSH 10 ML FLUSH IV FLUSH SCH (20:42)
[2017-10-17 23:15] VITALS: BP 130/74; PULSE 64; RESP 17; TEMP 97.6; O2SAT 98
[2017-10-18] MEDS: D5-1/2 NS + KCL 20 MEQ INJ 1,000 ML IV SCH ×2 (00:58→04:44)
[2017-10-18] MEDS: ACETAMINOPHEN/HYDROcodone 325 MG/5 MG TAB PO PRN ×3 (03:05→15:44)
[2017-10-18] MEDS ORDERED: METOPROLOL TARTRATE 25 MG TAB PO PRN (05:15)
[2017-10-18] MEDS ORDERED: INSULIN HUMAN REGULAR 1,000 UNITS/10 ML VIAL SQ PRN (05:15)
[2017-10-18] MEDS ORDERED: SODIUM CHLORID 0.9% 500 ML IV PRN (05:15)
[2017-10-18] MEDS ORDERED: POVIDONE IODINE 5% (ANTISEPSIS KIT) 4 APPLICATIONS EACH NARE PRN (05:15)
[2017-10-18] MEDS ORDERED: CHLORHEXIDINE GLUCONATE 2 % 1 PACK (2 CLOTHS) TOPICAL PRN (05:15)
[2017-10-18] MEDS ORDERED: LACTATED RINGER'S 1000 ML IV PRN (05:15)
[2017-10-18 07:47] LABS: AUTOMATED NEUTROPHIL # 13.5 TH/MM3 (1.8-7.7); BASOPHIL % 0.3 % (0.0-2.0); EOSINOPHIL % 0.1 % (0.0-4.0); HEMATOCRIT 36.8 % (35.0-46.0); HEMOGLOBIN 12.9 GM/DL (11.6-15.3); LYMPH % 7.5 % (9.0-44.0); LYMPHOCYTE # 1.2 TH/MM3 (1.0-4.8); MEAN CELL VOLUME 92.5 FL (80.0-100.0); MEAN CORPUSCULAR HEMOGLOBIN 32.5 PG (27.0-34.0); MEAN CORPUSCULAR HGB CONC 35.1 % (32.0-36.0); MEAN PLATELET VOLUME 7.9 FL (7.0-11.0); MONOCYTE # 0.6 TH/MM3 (0-0.9); NEUT % 88.1 % (16.0-70.0); PLATELET COUNT 253 TH/MM3 (150-450); RED BLOOD COUNT 3.98 MIL/MM3 (4.00-5.30); RED CELL DISTRIBUTION WIDTH 13.4 % (11.6-17.2); WHITE BLOOD COUNT 15.3 TH/MM3 (4.0-11.0)
[2017-10-18 08:00] VITALS: BP 189/72; PULSE 156; RESP 18; TEMP 97.2; O2SAT 95
[2017-10-18 08:01] LABS: BICARBONATE 23.4 MEQ/L (21.0-32.0); CALCIUM 9.9 MG/DL (8.5-10.1); CREATININE 0.86 MG/DL (0.50-1.00)
[2017-10-18] MEDS ORDERED: LISINOPRIL 5 MG TAB PO SCH (09:00)
[2017-10-18] MEDS ORDERED: METOPROLOL SUCCINATE 25 MG EXTENDED RELEASE TAB PO SCH (09:00)
[2017-10-18] MEDS: SODIUM CHLORIDE 0.9% FLUSH 10 ML FLUSH IV FLUSH SCH (09:04)
--- NOTE | 2017-10-18 09:44 | PD.ORT.PN ---
Subjective Subjective Remarks Patient is bed and wheelchair bound with fracture to right distal femur. Patient is lifted by Stewart at home Objective Vitals Vital Signs Date Time Temp Pulse Resp B/P (MAP) Pulse Ox O2 Delivery O2 Flow Rate FiO2 10/17/17 23:15 97.6 64 17 130/74 (92) 98 10/17/17 20:00 98.5 65 18 193/79 (117) 98 10/17/17 17:44 10/17/17 16:00 72 18 154/74 (100) 100 Room Air 10/17/17 12:09 100 Room Air 10/17/17 12:00 97.8 66 18 162/109 (126) 100 I/O 10/17/17 10/17/17 10/17/17 10/18/17 10/18/17 10/18/17 07:00 15:00 23:00 07:00 15:00 23:00 Intake Total 240 ml 0 ml Output Total 0 ml Balance 240 ml 0 ml Intake Oral 240 ml 0 ml Output Stool Total 0 ml # Voids 1 2 # Bowel Movements 0 Result Diagram: 10/18/17 0619 10/18/17 0619 Other Results Laboratory Tests Test 10/17/17 12:45 Prothromb Time International Ratio 1.0 RATIO Prothrombin Time 10.1 SEC (9.8-11.6) Imaging Last 24 hours Impressions Knee X-Ray 10/17/17 120 Signed Impressions: Service Date/Time: October 13:18 - CONCLUSION: 1. Distal femoral fracture. Kennedy Juan MD Head CT 10/17/171204 Signed Impressions: Service Date/Time: October 12:56 - CONCLUSION: 1. Advanced central atrophy with ventriculomegaly and severe chronic microvascular ischemic white matter changes. 2. No acute infarct, hemorrhage, mass or edema. Mars Wheatley MD Chest X-Ray 10/17/17 1205 Signed Impressions: Service Date/Time: October 13:28 - CONCLUSION: 1. COPD. 2. No evidence of acute airspace disease or significant congestion. 3. Pacemaker. Mars Wheatley MD Objective Remarks Right lower extremity: Pain to palpation of knee. Moderate swelling. Skin is intact. Distally intact sensation with good capillary refills but contractures of the foot are noted. Ankle range of motion is from 5 short of neutral to 45 of plantarflexion Assessment & Plan Assessment and Plan Right distal femur fracture Patient is nonambulatory and x-rays do show fracture with appropriate alignment with mild impaction and slight angulation. At this point we will continue to treat this nonoperatively. Knee immobilizer will be placed. She will be nonweightbearing on the right lower extremity and will avoid any range of motion exercises with the knee. She'll follow-up x-rays in 10-[address] Shaffer or YVONNE to evaluate fracture alignment. If the fracture does displace surgical intervention may be necessary. Case management for reclining wheelchair with elevated leg rest Kaveh Fang Jr. Oct 18, 2017 09:44
[2017-10-18] MEDS ORDERED: WHEEMIS3 (09:47)
[2017-10-18] MEDS ORDERED: cefTRIAXone INJ 1,000 MG in SODIUM CHLORIDE 0.9% INJ 100 ML IV SCH (10:00)
[2017-10-18] MEDS ORDERED: HYDR-3516 PO ×2 (10:13→21:09)
--- NOTE | 2017-10-18 10:14 | HHI.DCPOC ---
Discharge Care Plan Diagnosis: (1) Fall (2) Fracture, femur, distal (3) Dementia (4) Hypertension Goals to Promote Your Health * To prevent worsening of your condition and complications * To maintain your health at the optimal level Directions to Meet Your Goals Take your medications as prescribed Follow your dietary instruction Follow activity as directed Keep your appointments as scheduled Take your immunizations and boosters as scheduled If your symptoms worsen call your PCP, if no PCP go to Urgent Care Center or Emergency Room Smoking is Dangerous to Your Health. Avoid second hand smoke Call the 24-hour hour crisis hotline for domestic abuse at Bright Gillespie MD Oct 18, 2017 10:13
[2017-10-18] MEDS ORDERED: CEFU1TAB20 PO (10:15)
--- NOTE | 2017-10-18 11:19 | MB ---
cc: BRIAN ARTIS DATE OF CONSULTATION 10/18/2017 DATE OF ADMISSION 10/17/2017 REASON FOR CONSULTATION Right distal femur supracondylar fracture. CONSULTING PHYSICIAN Dr. Bright Gillespie ADIS Blank is an 82-year-old female who has a history of significant Alzheimer's disease. She is basically bed-bound. She has to use a Stewart lift to get into a wheelchair. She does not stand or ambulate. She does not stand to transfer. She had a fall. She had right knee pain. She presented to the emergency room where x-rays revealed a right distal femur fracture. She is currently awake on the orthopedic floor. She is unable to give any significant history. Her daughter is at bedside. PAST MEDICAL HISTORY ILLNESSES 1. Dementia 2. Hypertension 3. History of DVT. SURGERIES 1. Hysterectomy 2. Right hip IM nail 3. Left shoulder surgery 4. Pacemaker placement MEDICATIONS Include: 1. Xarelto 2. Lisinopril 3. Metoprolol ALLERGIES NO KNOWN DRUG ALLERGIES. FAMILY HISTORY Noncontributory SOCIAL HISTORY The patient lives with her daughter. She is confined to a wheelchair and bed. She does not currently use alcohol or tobacco. REVIEW OF SYSTEMS Unobtainable secondary to dementia. PHYSICAL EXAMINATION The patient is an 82-year-old female. She is awake, but confused. She is moderately overweight. She is in no acute distress. VITAL SIGNS: Temperature 97.2, pulse 156, respirations 18, blood pressure 189/72, O2 sat 95% on room air. HEAD: The patient is normocephalic. EYES: Pupils are equal. NECK: Soft and nontender. Trachea is midline. ABDOMEN: Soft, nontender, nondistended. EXTREMITIES: Examination of bilateral upper extremities reveals no significant pain with shoulder, elbow or wrist motion. She has good cap refill in her fingers. Skin is intact to both hands. Examination of left leg reveals no obvious pain or deformity with hip, knee or ankle motion. Skin is intact. Dorsalis pedis pulse is palpable. Examination of the right leg reveals no obvious tenderness around her hip or ankle. Calf and thigh compartments are soft. On palpation around the knee, she appears to have pain with knee motion. Skin is intact. Dorsalis pedis pulse is palpable. LABORATORY DATA The patient has a white blood cell count of 15.3, hemoglobin of 12.9 and a hematocrit of 36.8. INR is 1.0. BUN is 13 and creatinine is 0.86. IMPRESSION 1. Dementia 2. Hypertension 3. History of DVT 4. Nondisplaced right distal femur fracture. X-RAYS X-rays of right femur were reviewed. X-rays reveal a minimally displaced right distal femur fracture. The articular surface appears to be in near anatomic alignment. PLAN Treatment options were discussed with the patient and her daughter. At this point, the patient is non-ambulatory and does not stand or transfer. Given her medical problems, dementia, history of DVT, as well as non-ambulatory status, I would recommend nonoperative treatment. The patient will go into a knee immobilizer. She will need followup x-rays in approximately one week. If the fracture does displace, then she may need surgical intervention. The patient's daughter is in agreement with this plan. All questions were answered. A mid-level provider in my office, nurse practitioner or PA, may see this patient on a follow-up basis and continue to implement the objective of this plan including: Starting or adjusting medications, injections of muscle, tendon, bursa or joints, cast application, orthotic or brace application, physical therapy, further radiographic studies including x-ray, MRI, CT, ultrasounds or bone scan, vascular studies, neurologic studies, or other specialist consultations, and proceeding with surgical management as appropriate. MD BERENICE Xiong/MARY ANN /10:50 AM /11:07 AM
--- NOTE | 2017-10-18 11:33 | HHI.PR ---
Subjective Remarks No new issues. Discussed with the patient's daughter, orthopedics recommended nonoperative management. Daughter would like to take the patient back home. Objective Vitals Vital Signs Date Time Temp Pulse Resp B/P (MAP) Pulse Ox O2 Delivery O2 Flow Rate FiO2 10/18/17 08:00 97.2 156 18 189/72 (111) 95 10/17/17 23:15 97.6 64 17 130/74 (92) 98 10/17/17 20:00 98.5 65 18 193/79 (117) 98 10/17/17 17:44 10/17/17 16:00 72 18 154/74 (100) 100 Room Air 10/17/17 12:09 100 Room Air 10/17/17 12:00 97.8 66 18 162/109 (126) 100 I/O 10/17/17 10/17/17 10/17/17 10/18/17 10/18/17 10/18/17 07:00 15:00 23:00 07:00 15:00 23:00 Intake Total 240 ml 0 ml Output Total 0 ml Balance 240 ml 0 ml Intake Oral 240 ml 0 ml Output Stool Total 0 ml # Voids 1 2 # Bowel Movements 0 Result Diagram: 10/18/1761810/18/1719 Objective Remarks GENERAL: Obese female. Can say some words but sentences not put together. SKIN: Abrasions over the nose CARDIOVASCULAR: Regular rate and rhythm without murmurs, gallops, or rubs. RESPIRATORY: Clear to auscultation. Breath sounds equal bilaterally. No wheezes , rales, or rhonchi. GASTROINTESTINAL: Abdomen soft, obese, non-tender, nondistended. MUSCULOSKELETAL: Difficult exam due to the patient's mentation. I am not able to elicit specific point tenderness. NEUROLOGICAL: Awake and alert. Demented. Can say some words to her daughter but cannot hold a conversation. A/P Problem List: (1) Fracture, femur, distal ICD Code: S72.409A - Unspecified fracture of lower end of unspecified femur, initial encounter for closed fracture Status: Acute Plan: Orthopedic evaluated the patient and recommended conservative management with knee immobilizer. The patient will be followed outpatient Pain control. (2) Dementia ICD Code: F03.90 - Unspecified dementia without behavioral disturbance Status: Chronic Plan: Stable (3) UTI (urinary tract infection) ICD Code: N39.0 - Urinary tract infection, site not specified Status: Acute Plan: Patient was given a dose of Rocephin. No history of resistant UTI. She is discharged on cefuroxime to complete the course of treatment. (4) Hypertension ICD Code: I10 - Essential (primary) hypertension Status: Chronic Plan: Controlled. 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 Resume Xarelto. (6) Fall ICD Code: W19.XXXA - Unspecified fall, initial encounter Plan: Unclear how she fell. Head CT with no acute findings. Patient is bedbound/wheelchair bound at baseline. Discharge Planning Stable for discharge back home to daughter. Discharge in stable condition Activity: Patient is nonweightbearing, wheelchair and bedbound. Right lower extremities to stay in immobilizer per orthopedics. Meds: Per med rec Diet: Heart healthy Follow-up with: PCP and orthopedics. Problem Qualifiers (1) Fracture, femur, distal: Qualified Codes: S72.401A - Unspecified fracture of lower end of right femur, initial encounter for closed fracture (2) Dementia: (3) UTI (urinary tract infection): Qualified Codes: N30.01 - Acute cystitis with hematuria Bright Gillespie MD Oct 18, 2017 11:33
[2017-10-18 12:00] VITALS: BP 172/72; PULSE 74; RESP 18; TEMP 97.9; O2SAT 98
--- NOTE | 2017-10-18 13:43 | HHI.FF ---
Face to Face Verification Diagnosis: (1) Fall (2) Fracture, femur, distal (3) Hypertension (4) Dementia (5) UTI (urinary tract infection) Physical Therapy Order: Evaluate and Treat Home Health Nursing Order: Medical education Medication education-adverse effect Nursing assessment with vital signs I have seen patient Rosamaria Alva on 10/18/17. My clinical findings support the need for the requested home health care services because: Ltd mobility - disease progression Limited ability to care for self High risk of falls I certify that my clinical findings support that this patient is homebound because: Impaired cognitive ability/safety Unsafe to leave home unassisted Bright Gillespie MD Oct 18, 2017 13:43
--- NOTE | 2017-10-19 01:52 | EKG ---
Date Performed: 10/17/2017 Time Performed: 12:25:48 PTAGE: 82 years EKG: Sinus rhythm POSSIBLE LEFT ATRIAL ENLARGEMENT LEFT VENTRICULAR HYPERTROPHY AND ST-T CHANGE ABNORMAL ECG PREVIOUS TRACING : 08/15/2016 10.37 Since the prior tracing, there has been no significant gardner DOCTOR: Winifred Riley Interpretating Date/Time 10/19/2017 01:50:12
== END 2017-10-18 18:28 | disposition home health service (06) | DRG 534 ==
LOC: NEPE 11:53 → NEDA 14:58 → N06B 17:44
PROVIDERS: ADMIT Family Medicine; ATTEND Family Medicine
PROC: 2W3LXYZ Immobilization of Right Lower Extremity using Other Device (ICD-10-PCS; principal; 2017-10-18)
DX: S72.451A Displaced supracondylar fracture without intracondylar extension of lower end of right femur, initial encounter for closed fracture (principal); G30.9 Alzheimer's disease, unspecified; N39.0 Urinary tract infection, site not specified; F02.80 Dementia in other diseases classified elsewhere, unspecified severity, without behavioral disturbance, psychotic disturbance, mood disturbance, and anxiety; I10 Essential (primary) hypertension; S00.31XA Abrasion of nose, initial encounter; E78.00 Pure hypercholesterolemia, unspecified; E07.9 Disorder of thyroid, unspecified; E66.9 Obesity, unspecified; Z68.34 Body mass index [BMI] 34.0-34.9, adult; Z79.01 Long term (current) use of anticoagulants; Z99.3 Dependence on wheelchair; Z74.01 Bed confinement status; Z86.718 Personal history of other venous thrombosis and embolism; Z95.0 Presence of cardiac pacemaker; Z90.710 Acquired absence of both cervix and uterus; Z87.440 Personal history of urinary (tract) infections; W19.XXXA Unspecified fall, initial encounter; Y92.009 Unspecified place in unspecified non-institutional (private) residence as the place of occurrence of the external cause
CPT/HCPCS: 70450; 71045; 73502; 73564; 80048; 80053; 81001; 83735; 84484; 85007; 85025; 85027; 85610; 85730; 87077; 87086; 87186; 93005; 96365; J0696; J2270; J3480; L1830